=== PATIENT | female | born 1980 | race Native Hawaiian/Other Pacific Islander ===

== ENCOUNTER → 2022-02-23 14:25 | Outpatient (CLI) | payer OTHER, SELFPAY ==
[2022-02-23 16:36] LABS: Add Manual Diff / Slide Review NO; Basophils Absolute Auto 100 /uL (0-100); Basophils Percent Auto 0.5 % (0-2); Eosinophils Absolute Auto 200 /uL (0-450); Eosinophils Percent Auto 1.6 % (2-4); Hematocrit 40.3 % (36-46); Hemoglobin 13.3 g/dL (12.0-16.0); Lymphocytes Absolute Auto 2300 /uL (1100-4500); Lymphocytes Percent Auto 19.2 % (25-40); Mean Corpuscular HGB Conc 32.9 % (30-36); Mean Corpuscular Volume 78.9 fL (80-100); Monocytes Absolute Auto 500 /uL (0-900); Monocytes Percent Auto 4.4 % (3-14); Neutrophils Absolute Auto 8800 /uL (1500-7000); Neutrophils Percent Auto 74.3 % (50-75); Platelet Count 249 X10^3/uL (150-400); Red Cell Distribution Width 13.8 % (11.6-14.8); White Blood Cell Count 11.8 X10^3/uL (4.5-11.0)
[2022-02-23 16:51] LABS: Alanine Aminotransferase 25 IU/L (<35); Albumin 4.8 g/dL (3.5-5.0); Albumin Globulin Ratio 1.2 (1.0-2.8); Alkaline Phosphatase 79 U/L (38-126); Aspartate Aminotransferase 27 IU/L (14-36); BUN Creatinine Ratio 21.3 (6-22); Bilirubin Total 0.5 mg/dL (0.2-1.3); Blood Urea Nitrogen 10 mg/dL (7-17); Calcium 9.6 mg/dL (8.4-10.2); Carbon Dioxide 22 mmol/L (22-32); Chloride 103 mmol/L (98-107); Cholesterol 251 mg/dL (140-199); Estimated Glomerular Filt Rate > 60 mL/min (>60); Glucose 104 mg/dL (70-100); HDL Cholesterol 66 mg/dL (40-60); HEMOLYSIS < 15 (0-50); LDL Cholesterol Calculated 152 mg/dL (<100); Potassium 3.8 mmol/L (3.4-5.1); Sodium 139 mmol/L (137-145); Total Protein 8.8 g/dL (6.3-8.2); Triglycerides 165 mg/dL (35-150)
[2022-02-23 17:29] LABS: HCG Quantitative /Beta subunit 66352 mIU/mL
== END ==
PROVIDERS: PCP Nurse Practitioner; Referring Provider Family Medicine; Visit Provider Family Medicine
DX: N92.6 Irregular menstruation, unspecified (principal); R53.83 Other fatigue
CPT/HCPCS: 36415; 80053; 80061; 84702; 85025

== ENCOUNTER → 2022-03-12 15:46 | Outpatient (CLI) | payer OTHER, SELFPAY ==
--- NOTE | 2022-03-12 15:52 | DI.US.S_ITS ---
PROCEDURE: US OB <= 14 WEEKS FETUS INDICATIONS: EVAL SIZE AND DATES OUTSIDE/PRIOR DATING DATA: Last menstrual period (LMP): Not of the. LMP-based estimated date of delivery (RASTA): Not available. First dating scan (date and location): 03/12/2022 at . Estimated date of delivery (RASTA) from first dating scan: 10/01/2022. TECHNIQUE: Real-time scanning was performed of the fetus and maternal pelvic organs, with image documentation. Endovaginal scanning was also performed to better visualize the fetus and maternal ovaries. COMPARISON: None. FINDINGS: Embryo: There is a single living IUP. The estimated gestational age is 11 weeks 0 day. Heart rate: 168-178 BPM. Maternal organs: Right ovary is normal. Left ovary is not visualized. IMPRESSION: 1. A single living intrauterine gestation with an estimated gestational age of 11 weeks 0 day corresponding to ultrasound RASTA 10/01/2022. 2. Normal right ovary. Nonvisualization of left ovary. We strive to produce accurate, complete, and clear reports of imaging services. To assist us in improving patient care, this report was composed using standard report templates and voice recognition software. Therefore, it may contain abnormal punctuation, insertions and/or omissions. Occasional wrong-word or sound-alike substitutions may occur. Though we review the report and make efforts to correct it, we do recommend that the report be read carefully in proper context to recognize any text inaccuracies. Dictated by: Adrianna Pino M.D. on 03/12/2022 at 16:51 Approved by: Adrianna Pino M.D. on 03/12/2022 at 16:54
== END ==
PROVIDERS: PCP Family Medicine; Referring Provider Family Medicine; Visit Provider Family Medicine
DX: Z34.91 Encounter for supervision of normal pregnancy, unspecified, first trimester (principal); Z3A.11 11 weeks gestation of pregnancy
CPT/HCPCS: 76801; 76817

== ENCOUNTER → 2022-05-25 12:15 | Outpatient (CLI) | payer OTHER, SELFPAY ==
--- NOTE | 2022-05-25 12:17 | DI.US.S_ITS ---
PROCEDURE: US OB >= 14 WEEKS FETUS INDICATIONS: ANATOMY OUTSIDE/PRIOR DATING DATA: Last menstrual period (LMP): Unknown LMP-based estimated date of delivery (RASTA): Unknown First dating scan (date and location): 03/12/2022 Estimated date of delivery (RASTA) from first dating scan: 10/01/2022 TECHNIQUE: Real-time scanning was performed of the fetus, with image documentation and biometric measurements. COMPARISON: Merged With [facility], , OB <= 14 WEEKS FETUS, 03/12/2022, 16:14. FINDINGS: General: A single living intrauterine gestation is present. Presentation: Vertex Placenta: Placental position is posterior without previa. Amniotic fluid index: 12.7 cm, normal range is 5-24 cm. Single deepest vertical pocket is 4.6 cm. heart rate: 155 beats per minute. Maternal cervical canal: 3.8 cm long. Normal lower limit is 2.5 cm. biometrics: Biparietal diameter: 5.0 cm 21 weeks 0 days Head circumference: 19.3 cm 21 weeks 4 days Abdominal circumference: 16.0 cm 21 weeks 1 day Femur length: 3.4 cm 20 weeks 5 days Gestational age from initial ultrasound: 21 weeks 4 days Composite gestational age from present scan: 21 weeks 1 day Estimated weight and percentile: 394 g 19th percentile Anatomic survey: Neuro: Ventricles are non-dilated at less than 10 mm. Cisterna magna is normal at 3-11 mm. Cerebellum is normal in size and morphology. Nuchal skin fold: Normal at less than 6 mm between 14-21 weeks gestational age. Face: Nose and lips, facial profile are not well seen. Spine: No evidence for spina bifida. Heart: 4-chambered heart is present, with normal ventricular outflow tracts. Diaphragm: Diaphragm is intact. Stomach: Left-sided stomach is present. Kidneys: No hydronephrosis. Normal is less than 5 mm in 2nd trimester, less than 7 mm in 3rd trimester. Cord: 3-vessel cord has orthotopic insertion. Bladder: Normal in size. Extremities: All 4 extremities identified. IMPRESSION: Single live intrauterine with ultrasound gestational age today of 21 weeks 1 day. Facial profile as well as nose/lips are not well seen. Recommend follow-up ultrasound for further evaluation. We strive to produce accurate, complete, and clear reports of imaging services. To assist us in improving patient care, this report was composed using standard report templates and voice recognition software. Therefore, it may contain abnormal punctuation, insertions and/or omissions. Occasional wrong-word or sound-alike substitutions may occur. Though we review the report and make efforts to correct it, we do recommend that the report be read carefully in proper context to recognize any text inaccuracies. Dictated by: Zulema Brewster M.D. on 05/25/2022 at 16:48 Approved by: Zulema Brewster M.D. on 05/25/2022 at 16:51
== END ==
PROVIDERS: PCP Family Medicine; Referring Provider Family Medicine; Visit Provider Family Medicine
DX: Z34.92 Encounter for supervision of normal pregnancy, unspecified, second trimester (principal); Z3A.21 21 weeks gestation of pregnancy
CPT/HCPCS: 76811

== ENCOUNTER → 2022-06-23 08:05 | Outpatient (CLI) | payer OTHER, SELFPAY ==
--- NOTE | 2022-06-23 08:05 | DI.US.S_ITS ---
PROCEDURE: US OB FOLLOW UP INDICATIONS: PROFILE OUTSIDE/PRIOR DATING DATA: Last menstrual period (LMP): Unknown LMP-based estimated date of delivery (RASTA): Unknown. First dating scan (date and location): 03/12/2022. Estimated date of delivery (RASTA) from first dating scan: 10/01/2022. TECHNIQUE: Real-time scanning was performed of the fetus, with image documentation and biometric measurements. COMPARISON: [facility], OB >= 14 WEEKS FETUS, 05/25/2022, 12:42. [facility], OB <= 14 WEEKS FETUS, 03/12/2022, 16:14. FINDINGS: General: A single living intrauterine gestation is present. Presentation: Transverse. Placenta: Placental position is posterior , without previa. Amniotic fluid index: 19.2 cm, normal range is 5-24 cm. Single deepest vertical pocket is 5.1 cm. heart rate: 150 beats per minute. Maternal cervical canal: 4.6 cm long. Normal lower limit is 2.5 cm. biometrics: Composite gestational age from present scan: 25 weeks 5 days Other: Profile remains not well seen. IMPRESSION: Single live intrauterine with ultrasound gestational age today of 25 weeks 5 days. Profile remains not well seen and continued follow-up is recommended. We strive to produce accurate, complete, and clear reports of imaging services. To assist us in improving patient care, this report was composed using standard report templates and voice recognition software. Therefore, it may contain abnormal punctuation, insertions and/or omissions. Occasional wrong-word or sound-alike substitutions may occur. Though we review the report and make efforts to correct it, we do recommend that the report be read carefully in proper context to recognize any text inaccuracies. Dictated by: Zulema Brewster M.D. on 06/23/2022 at 16:51 Approved by: Zulema Brewster M.D. on 06/23/2022 at 16:53
[2022-06-23 12:34] LABS: Add Manual Diff / Slide Review NO; Basophils Absolute Auto 0 /uL (0-100); Basophils Percent Auto 0.4 % (0-2); Eosinophils Absolute Auto 100 /uL (0-450); Eosinophils Percent Auto 1.3 % (2-4); Hematocrit 33.5 % (36-46); Hemoglobin 11.2 g/dL (12.0-16.0); Lymphocytes Absolute Auto 1400 /uL (1100-4500); Lymphocytes Percent Auto 13.4 % (25-40); Mean Corpuscular HGB Conc 33.5 % (30-36); Mean Corpuscular Hemoglobin 26.5 PG (26-34); Mean Corpuscular Volume 79.2 fL (80-100); Monocytes Absolute Auto 300 /uL (0-900); Monocytes Percent Auto 3.1 % (3-14); Neutrophils Absolute Auto 8400 /uL (1500-7000); Neutrophils Percent Auto 81.8 % (50-75); Platelet Count 226 X10^3/uL (150-400); Red Blood Cell Count 4.23 X10^6/uL (4.0-5.2); Red Cell Distribution Width 13.3 % (11.6-14.8); White Blood Cell Count 10.3 X10^3/uL (4.5-11.0)
[2022-06-23 19:01] LABS: Hepatitis B Surface Antigen NEGATIVE s/c (NEGATIVE)
[2022-06-23 19:14] LABS: HIV 1 & 2 Ab/Ag 4th Gen Combo NEGATIVE (NEGATIVE); Hep C Virus Ab w/Reflex Quant NEGATIVE s/c (NEGATIVE)
[2022-06-24 06:32] LABS: RPR Screen Non Reactive (Non Reactive)
[2022-06-24 08:13] LABS: Varicella IgG Antibody 475 index (Immune >165)
== END ==
PROVIDERS: PCP Family Medicine; Referring Provider Family Medicine; Visit Provider Family Medicine
DX: Z34.81 Encounter for supervision of other normal pregnancy, first trimester (principal); Z36.2 Encounter for other antenatal screening follow-up; Z3A.25 25 weeks gestation of pregnancy
CPT/HCPCS: 36415; 76816; 80055; 86787; 86803; 86850; 86900; 86901; 87389

== ENCOUNTER → 2022-06-25 09:05 | Outpatient (CLI) | payer OTHER, SELFPAY ==
[2022-06-25 12:05] LABS: Hematocrit 33.1 % (36-46); Hemoglobin 10.7 g/dL (12.0-16.0); Mean Corpuscular HGB Conc 32.4 % (30-36); Mean Corpuscular Hemoglobin 26.2 PG (26-34); Mean Corpuscular Volume 80.7 fL (80-100); Platelet Count 221 X10^3/uL (150-400); Red Cell Distribution Width 13.4 % (11.6-14.8); White Blood Cell Count 9.5 X10^3/uL (4.5-11.0)
[2022-06-25 12:06] LABS: Add Manual Diff / Slide Review YES
[2022-06-25 12:33] LABS: GTT (PREG) 1 Hour PP 50gm Dose 212 mg/dL (76-139)
[2022-06-25 12:50] LABS: Neutrophils Absolute Manual 7980 /uL (3000-5900); Total Cells Counted 100
[2022-06-25 12:51] LABS: RBC Morphology Norm
== END ==
PROVIDERS: PCP Family Medicine; Referring Provider Family Medicine; Visit Provider Family Medicine
DX: Z34.92 Encounter for supervision of normal pregnancy, unspecified, second trimester (principal); Z3A.25 25 weeks gestation of pregnancy
CPT/HCPCS: 36415; 82950; 85007; 85025; 86850

== ENCOUNTER → 2022-07-24 11:23 | Outpatient (CLI) | payer OTHER, SELFPAY ==
--- NOTE | 2022-07-24 17:08 | DIAB.GDFU ---
Addendum entered by Sushma Mosqueda 07/30/22 16:38: Tried calling for one week check-in. Left a VM. Original Note: Follow-up Gestational Diabetes Assessment Name: Hailey Harrison Date: 07/24/22 Time: 1130a-1210p Dx: Gestational Diabetes Provider: Jennifer RASTA: 10/01/22 Weeks: 30 Hailey presents for follow-up today. Also had f/u with OB today. Reports OB plans to add Metformin given current BG. Hailey does have some sources of high carb, ie frappaccino, but she has been avoiding carbs at lunch and dinner. Asking for variety for meals and snacks. 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 Current diet recall indicates about 105g per day. Based on restricted diet to help significant elevated BG, seems she may be benefit from insulin initiation. Anthropometrics: Ht: 5' Wt: 142# (today with OB visit-- down 2# since last visit likely r/t reduced intake) Prepregnancy wt: 137# Physical Activity: No change reported. Walking neighborhood on days off 3x per week for 30 mins. walks at work more, 5000 steps or more. Self-Monitoring Blood Glucose: Most BG are elevated. All FBG are significant elevated. 2/6 elevated pc breakfsat, 2/5 elevated pc lunch, and all pc dinner readings elevated. Date Pre Post Pre Post Pre Post HS 07/17 123 112 109 144 07/18 126 109 106 157 07/19 123 113 102 135 07/20 108 136 159 07/21 129 176 180 210 07/22 134 100 169 241 07/23 120 107 Diabetes Medications: None (plan to start Metformin) Pertinent Labs: glucose screen 212 mg/dL H Nutrition Rx: Carbohydrates: Daily: 180g Meal: 45-60g lunch and dinner; 30g breakfast Snack: 15-30g Nutrition Diagnosis: Altered nutrition related lab value r/t GDM dx aeb recent OGTT Excessive CHO intake r/t nutrition knowledge deficit aeb diet recall- improved self monitoring deficit r/t knowledge deficit on when to check aeb pt report. - improved Inadequate carb intake for r/t hyperglycemia impacting her choice to choose low carb aeb pt report and BG log. Intervention: This participant was very receptive. Provided appropriate educational handouts. Discussed the following topics: Recent blood sugar results and impact of food and hormones Review of macronutrient recommendations during Spreading out carb intake, choosing a lower carb coffee and trying to incorporate complex carbs Snack and meal ideas sugar substitutes during recs How and when to take Metformin (with food, 12 hours a part) BG and hormones and potential for increasing over . Potential for increased medication management for GDM. Goals: Choose lower sugar coffee choice- not met Check BG 4x per day as discussed- met Pair carbs and pro at meals / snacks- met Keep rice to 1c per serving - not eating rice Try iced coffee with cream- new Try a new snack from list- new direct support staff member Metformin- new Try 1/2c rice at meals- new Follow-up: FER ROMAN follow-up in one week via phone and follow-up 1:1 two weeks Sushma Mosqueda RDN, JESSIE Certified Diabetes Care and Telephone Operator Receptionist T: [phone] F: [phone] [email or web address] Thank you for this referral
== END ==
PROVIDERS: Referring Provider Family Medicine; Visit Provider Family Medicine
DX: O24.419 Gestational diabetes mellitus in pregnancy, unspecified control (principal); Z3A.30 30 weeks gestation of pregnancy
CPT/HCPCS: 97803

== ENCOUNTER → 2022-08-06 08:22 | Outpatient (CLI) | payer OTHER, SELFPAY ==
--- NOTE | 2022-08-06 14:01 | DIAB.GDFU ---
Follow-up Gestational Diabetes Assessment Name: Hailey Harrison Date: 08/06/22 Time: 624-398a Dx: Gestational Diabetes Provider: Jennifer RASTA: 10/01/22 Weeks: 32 Hailey presents today for follow-up visit. Per diet recall, she continues below [place] for CHO during , often averaging 80-105g per day. Often skipping carbs all together at dinner and keeping carb intake 0-30g per meal otherwise. Despite this she continues to experience hyperglycemia. She has increased Metformin to 1000mg BID since evening of last OB visit on 08/03. Seems likely that she would benefit from insulin. She seems open to this, though has questions about what exactly insulin is, how it may impact baby, and how to inject. Diet Recall: 9a; 1c soup with toast (30g CHO) 1130a: 1/2c rice with veggie and meat or half eng muffin and marinara and cheese (15-20g CHO) 2p: nuts, cheese, sometimes crans (0-10g CHO) 6p: meat and salad sn: nothing or small naan with PB or banana and PB (30g CHO) Anthropometrics: Ht: 5' Wt: 146# on 08/03 Prepregnancy wt: 137# Physical Activity: No change reported. Walking neighborhood on days off 3x per week for 30 mins. walks at work more, 5000 steps or more. Self-Monitoring Blood Glucose: All FBG above 100mg/dL. 2/6 elevated pc breakfast, 4/6 elevated pc lunch and 1 of 2 elevated pc dinner. Date Pre Post Pre Post Pre Post HS 07/31 131 110 126 08/01 133 152 121 140 08/02 110 90 120 109 08/03 100 120 107 08/04 126 131 121 08/05 115 88 139 08/06 105 Diabetes Medications: 1000mg Metformin BID Pertinent Labs: glucose screen 212 mg/dL H Intervention: This participant was very receptive. Provided appropriate educational handouts. Discussed the following topics: Recent blood sugar results and impact hormones Nutrition recs for and current intake Insulin demo pen and how to inject Insulin safety during Review of macronutrient recommendations during Goals: Try iced coffee with cream- met Try a new snack from list- met superintendent container terminal Metformin- met Try 1/2c rice at meals- met If starting insulin, add 45g carbs at lunch and dinner- new Follow-up: FER ROMAN follow-up in one week via phone and in person in two weeks. Even with some improved BG with increased Metformin, Hailey is having to eat very low carb to keep BG in goal pc. Based on current BG seems Hailey would benefit from long acting insulin HS. Will message provider for further evaluation. Sushma Mosqueda RDN, [facility] Certified Diabetes Care and Senior Game Developer T: [phone] F: [phone] [email or web address] Thank you for this referral
== END ==
PROVIDERS: Referring Provider Family Medicine; Visit Provider Family Medicine
DX: O24.415 Gestational diabetes mellitus in pregnancy, controlled by oral hypoglycemic drugs (principal); Z3A.32 32 weeks gestation of pregnancy; Z71.3 Dietary counseling and surveillance
CPT/HCPCS: G0108

== ENCOUNTER 2022-08-06 13:51 | Outpatient (CLI) | payer OTHER, SELFPAY ==
--- NOTE | 2022-08-07 13:01 | PM.OBTRLD ---
Visit Information Visit Information Date of evaluation: 08/06/22 Primary OB Provider: Jennifer Rodriguez On-call OB Provider: Richard Mariano Reason for Evaluation: Yes non-stress test Comments/Additional reasons for admission: IUP, 32+0 weeks EGA, advanced maternal age, gestational diabetes Vital Signs Vital Signs: 116/64 [facility] Medical History (Updated 08/07/22 @ 13:05 by Richard Mariano MD) Abnormal Pap smear of cervix (~2008) Gastritis Surgical History (Updated 07/09/22 @ 15:05 by Ethan Mancilla) [place] teeth extracted Family History (System 07/09/22 @ 15:05 by Ethan Mancilla) Father Prostate cancer Atrial fibrillation Family/Other Breast cancer Family/Other Prostate cancer Grandmother Bone cancer Family/Other Breast cancer Family/Other Cancer Social History (System 07/09/22 @ 15:05 by Ethan Mancilla) marital status: number of children: 2 household members: spouse, family and children lives independently: Yes [facility]) pets and animals: Yes (3 dogs) education level: high school 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[employer]) current occupational exposures/hazards: No special kathie needs: No seatbelt use: always helmet use: Yes water heater temp set < 120 deg: Yes working smoke detector in home: Yes fire extinguisher in home: Yes carbon monox detector in home: Yes firearms in home: No do you feel safe at home: Yes Smoking Status: Former smoker (Quit 2009) Tobacco: How many years used: 19 quit status: has quit before alcohol intake: former substance use type: does not use during the past year weight has: remained stable well-balanced diet: daily or most days daily servings fruits/ve-4 caffeine: Yes Type(s) of exercise: walking Evaluation Evaluation Baseline heart rate: 130 Variability: Moderate (11-25) monitor accelerations: Present Monitor Decelerations: Absent Category of Tracing: Reactive Diagnosis, Plan/Disposition Final Diagnosis (1) Gestational diabetes: Status: Acute (2) Advanced maternal age (AMA), 40 years or greater: Status: Acute (3) : Status: Acute Problem details: Ansari, 32+ 0 weeks gestational age Plan/Disposition Plan: Continue current plans for care per Dr. Rodriguez OB Disposition: home
== END 2022-08-06 15:03 | disposition home or self-care (01) ==
LOC: OB 08-07 16:41
PROVIDERS: Referring Provider Family Medicine; Visit Provider Family Medicine
DX: O24.415 Gestational diabetes mellitus in pregnancy, controlled by oral hypoglycemic drugs (principal); O09.523 Supervision of elderly multigravida, third trimester; Z3A.32 32 weeks gestation of pregnancy
CPT/HCPCS: 59025; G0378; G0379

== ENCOUNTER → 2022-08-10 06:46 | Outpatient (CLI) | payer OTHER, SELFPAY ==
--- NOTE | 2022-08-10 06:47 | DI.US.S_ITS ---
PROCEDURE: US OB FOLLOW UP INDICATIONS: GROWTH SCREEN OUTSIDE/PRIOR DATING DATA: Last menstrual period (LMP): Unknown LMP-based estimated date of delivery (RASTA): Unknown First dating scan (date and location): 03/12/2022 Estimated date of delivery (RASTA) from first dating scan: 10/01/2022 The calculations are made using the study derived RASTA of 10/01/2022 TECHNIQUE: Real-time scanning was performed of the fetus, with image documentation and biometric measurements. Endovaginal scanning: Not indicated COMPARISON: [facility], OB FOLLOW UP, 06/23/2022, 8:08. FINDINGS: General: A single living intrauterine gestation is present. Presentation: Breech Placenta: Placental position is posterior, without previa. Amniotic fluid index: 15.3 cm, normal range is 5-24 cm. Single deepest vertical pocket is 4.9 cm. heart rate: 145 beats per minute. Maternal cervical canal: 4.0 cm long. Normal lower limit is 2.5 cm. biometrics: Biparietal diameter: 7.8 cm, 31 weeks, 2 days. Head circumference: 29.6 cm, 32 weeks, 5 days. Abdominal circumference: 27.6 cm, 31 weeks, 5 days. Femur length: 6.1 cm, 31 weeks, 4 days. Clinically estimated gestational age: 32 weeks, 4 days. Composite gestational age from present scan: 31 weeks, 6 days. Estimated weight and percentile: 1827 g, 18%. Other: Facial profile is visualized and is within normal limits. IMPRESSION: 1. Single live intrauterine gestation with fetus in breech presentation. heart rate is 145 beats per minute. Normal amount of amniotic fluid. Estimated weight is at 18%. Cervix is closed and measures 4 point C0 cm in length. 2. Facial profile is visualized and is within normal limits. We strive to produce accurate, complete, and clear reports of imaging services. To assist us in improving patient care, this report was composed using standard report templates and voice recognition software. Therefore, it may contain abnormal punctuation, insertions and/or omissions. Occasional wrong-word or sound-alike substitutions may occur. Though we review the report and make efforts to correct it, we do recommend that the report be read carefully in proper context to recognize any text inaccuracies. Dictated by: Ming Williamson M.D. on 08/10/2022 at 9:25 Approved by: Ming Williamson M.D. on 08/10/2022 at 9:27
== END ==
PROVIDERS: Referring Provider Family Medicine; Visit Provider Family Medicine
DX: Z3A.31 31 weeks gestation of pregnancy; Z36.89 Encounter for other specified antenatal screening
CPT/HCPCS: 76816

== ENCOUNTER 2022-08-10 06:48 | Outpatient (CLI) | payer OTHER, SELFPAY ==
--- NOTE | 2022-08-10 09:03 | PM.OBTRLD ---
Visit Information Visit Information Date of evaluation: 08/10/22 Primary OB Provider: Jennifer Rodriguez Comments/Additional reasons for admission: 42yo at 32w4d here for NST for GDMA2. [facility] Medical History (Updated 08/10/22 @ 09:05 by Jennifer Rodriguez MD) Abnormal Pap smear of cervix (~2008) Gastritis Surgical History (Updated 07/09/22 @ 15:05 by Ethan Mancilla) [place] teeth extracted Family History (System 07/09/22 @ 15:05 by Ethan Mancilla) Father Prostate cancer Atrial fibrillation Family/Other Breast cancer Family/Other Prostate cancer Grandmother Bone cancer Family/Other Breast cancer Family/Other Cancer Social History (System 07/09/22 @ 15:05 by Ethan Mancilla) marital status: number of children: 2 household members: spouse, family and children lives independently: Yes housing: [facility]) pets and animals: Yes (3 dogs) education level: high school 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[employer]) current occupational exposures/hazards: No special kathei needs: No seatbelt use: always helmet use: Yes water heater temp set < 120 deg: Yes working smoke detector in home: Yes fire extinguisher in home: Yes carbon monox detector in home: Yes firearms in home: No do you feel safe at home: Yes Smoking Status: Former smoker (Quit 2009) Tobacco: How many years used: 19 quit status: has quit before alcohol intake: former substance use type: does not use during the past year weight has: remained stable well-balanced diet: daily or most days daily servings fruits/ve-4 caffeine: Yes Type(s) of exercise: walking Evaluation Evaluation Baseline heart rate: 150 Variability: Moderate (11-25) monitor accelerations: Present Monitor Decelerations: Absent Category of Tracing: Reactive Diagnosis, Plan/Disposition Final Diagnosis (1) Gestational diabetes: Status: Acute (2) 32 weeks gestation of : Status: Acute (3) Advanced maternal age (AMA), 40 years or greater: Status: Acute Plan/Disposition Plan: 42yo at 32w4d here for NST for GDMA2. Reactive NST. Will continue testing. Stable for d/c home. OB Disposition: home
== END 2022-08-10 09:15 | disposition home or self-care (01) ==
LOC: LABOR 08:35 → OB 08-11 08:01
PROVIDERS: Referring Provider Family Medicine; Visit Provider Family Medicine
DX: O24.415 Gestational diabetes mellitus in pregnancy, controlled by oral hypoglycemic drugs (principal); O09.523 Supervision of elderly multigravida, third trimester; Z3A.32 32 weeks gestation of pregnancy; Z36.89 Encounter for other specified antenatal screening; Z3A.31 31 weeks gestation of pregnancy
CPT/HCPCS: 59025; 76816; G0378; G0379

== ENCOUNTER 2022-08-13 10:54 | Outpatient (CLI) | payer OTHER, SELFPAY ==
--- NOTE | 2022-08-13 12:30 | PM.OBTRLD ---
Visit Information Visit Information Date of evaluation: 08/13/22 Primary OB Provider: Jennifer Rodriguez On-call OB Provider: Richard Mariano Reason for Evaluation: Yes non-stress test Comments/Additional reasons for admission: 42 YO at 33+0 weeks EGA for NST due to GDM A2 and AMA PFSH Medical History (Updated 08/13/22 @ 12:33 by Richard Mariano MD) Abnormal Pap smear of cervix (~2008) Gastritis Surgical History (Updated 07/09/22 @ 15:05 by Ethan Mancilla) [place] teeth extracted Family History (System 07/09/22 @ 15:05 by Ethan Mancilla) Father Prostate cancer Atrial fibrillation Family/Other Breast cancer Family/Other Prostate cancer Grandmother Bone cancer Family/Other Breast cancer Family/Other Cancer Social History (System 07/09/22 @ 15:05 by Ethan Mancilla) marital status: number of children: 2 household members: spouse, family and children lives independently: Yes housing: [facility] ([facility]) pets and animals: Yes (3 dogs) education level: high school 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[employer]) current occupational exposures/hazards: No special kathie needs: No seatbelt use: always helmet use: Yes water heater temp set < 120 deg: Yes working smoke detector in home: Yes fire extinguisher in home: Yes carbon monox detector in home: Yes firearms in home: No do you feel safe at home: Yes Smoking Status: Former smoker (Quit 2009) Tobacco: How many years used: 19 quit status: has quit before alcohol intake: former substance use type: does not use during the past year weight has: remained stable well-balanced diet: daily or most days daily servings fruits/ve-4 caffeine: Yes Type(s) of exercise: walking Evaluation Evaluation Baseline heart rate: 14 Variability: Moderate (11-25) monitor accelerations: Present Monitor Decelerations: Absent Category of Tracing: Reactive Diagnosis, Plan/Disposition Final Diagnosis (1) : Status: Acute Problem details: Ansari, 33+ 0 weeks gestational age (2) Gestational diabetes: Status: Acute (3) Advanced maternal age (AMA), 40 years or greater: Status: Acute Plan/Disposition Plan: Continue weekly surveillance as currently scheduled. OB Disposition: home
== END 2022-08-13 11:50 | disposition home or self-care (01) ==
LOC: OB 08-24 07:50
PROVIDERS: PCP Family Medicine; Referring Provider Family Medicine; Visit Provider Family Medicine
DX: O24.414 Gestational diabetes mellitus in pregnancy, insulin controlled (principal); O09.523 Supervision of elderly multigravida, third trimester; Z3A.33 33 weeks gestation of pregnancy
CPT/HCPCS: 59025; G0378; G0379

== ENCOUNTER 2022-08-17 10:42 | Outpatient (CLI) | payer OTHER, SELFPAY ==
--- NOTE | 2022-08-17 11:47 | P.TNLD_ITS ---
Visit Information Visit Information Date of evaluation: 08/17/22 Primary OB Provider: Jennifer Rodriguez Comments/Additional reasons for admission: at 33w4d here for NST for gestational diabetes. She is feeling her baby move regularly. No LOF, vaginal bleeding, contractions. [facility] Medical History (Updated 08/17/22 @ 16:28 by Jennifer Rodriguez MD) Abnormal Pap smear of cervix (~2008) Gastritis Surgical History (Updated 07/09/22 @ 15:05 by Ethna Mancilla) [place] teeth extracted Family History (System 07/09/22 @ 15:05 by Ethan Mancilla) Father Prostate cancer Atrial fibrillation Family/Other Breast cancer Family/Other Prostate cancer Grandmother Bone cancer Family/Other Breast cancer Family/Other Cancer Social History (System 07/09/22 @ 15:05 by Ethan Mancilla) marital status: number of children: 2 household members: spouse, family and children lives independently: Yes housing: condominium ([facility]) pets and animals: Yes (3 dogs) education level: high school 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[employer]) current occupational exposures/hazards: No special kathie needs: No seatbelt use: always helmet use: Yes water heater temp set < 120 deg: Yes working smoke detector in home: Yes fire extinguisher in home: Yes carbon monox detector in home: Yes firearms in home: No do you feel safe at home: Yes Smoking Status: Former smoker (Quit 2009) Tobacco: How many years used: 19 quit status: has quit before alcohol intake: former substance use type: does not use during the past year weight has: remained stable well-balanced diet: daily or most days daily servings fruits/ve-4 caffeine: Yes Type(s) of exercise: walking Evaluation Evaluation Baseline heart rate: 145 Variability: Moderate (11-25) monitor accelerations: Present Monitor Decelerations: Absent Category of Tracing: Reactive Diagnosis, Plan/Disposition Final Diagnosis (1) Gestational diabetes: Status: Acute (2) 33 weeks gestation of : Status: Acute Plan/Disposition Plan: 42yo here for NST for GDMA2. NST reactive. Continue testing. OB Disposition: home
== END 2022-08-17 11:48 | disposition home or self-care (01) ==
LOC: LABOR 11:45 → OB 08-24 07:56
PROVIDERS: PCP Family Medicine; Referring Provider Family Medicine; Visit Provider Family Medicine
DX: O24.414 Gestational diabetes mellitus in pregnancy, insulin controlled (principal); Z3A.33 33 weeks gestation of pregnancy
CPT/HCPCS: 59025; G0378; G0379

== ENCOUNTER 2022-08-24 10:55 | Outpatient (CLI) | payer OTHER, SELFPAY ==
--- NOTE | 2022-08-24 11:36 | PM.OBTRLD ---
Visit Information Visit Information Date of evaluation: 08/24/22 Primary OB Provider: Jennifer Rodriguez Comments/Additional reasons for admission: 42yo at 34w4d here for NST for GDMA2. Pt is feeling her baby move regularly. No LOF, contractions, vaginal bleeding. [facility]LY [facility], [facility] Medical History (Updated 08/24/22 @ 12:37 by Jennifer Rodriguez MD) Abnormal Pap smear of cervix (~2008) Gastritis Surgical History (Updated 07/09/22 @ 15:05 by Ethan Mancilla) [place] teeth extracted Family History (System 07/09/22 @ 15:05 by Ethan Mancilla) Father Prostate cancer Atrial fibrillation Family/Other Breast cancer Family/Other Prostate cancer Grandmother Bone cancer Family/Other Breast cancer Family/Other Cancer Social History (System 07/09/22 @ 15:05 by Ethan Mancilla) marital status: number of children: 2 household members: spouse, family and children lives independently: Yes housing: [place] ([facility]) pets and animals: Yes (3 dogs) education level: high school 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[employer]) current occupational exposures/hazards: No special kathie needs: No seatbelt use: always helmet use: Yes water heater temp set < 120 deg: Yes working smoke detector in home: Yes fire extinguisher in home: Yes carbon monox detector in home: Yes firearms in home: No do you feel safe at home: Yes Smoking Status: Former smoker (Quit 2009) Tobacco: How many years used: 19 quit status: has quit before alcohol intake: former substance use type: does not use during the past year weight has: remained stable well-balanced diet: daily or most days daily servings fruits/ve-4 caffeine: Yes Type(s) of exercise: walking Evaluation Evaluation Baseline heart rate: 150 Variability: Moderate (11-25) monitor accelerations: Present Monitor Decelerations: Absent Category of Tracing: Reactive Diagnosis, Plan/Disposition Final Diagnosis (1) Gestational diabetes: Status: Acute (2) 34 weeks gestation of : Status: Acute (3) Advanced maternal age (AMA), 40 years or greater: Status: Acute Plan/Disposition Plan: 42yo at 34w4d here for NST for GDMA2. NST reactive. Continue testing. OB Disposition: home
== END 2022-08-24 11:25 | disposition home or self-care (01) ==
LOC: LABOR 11:26 → OB 08-26 08:15
PROVIDERS: PCP Family Medicine; Referring Provider Family Medicine; Visit Provider Family Medicine
DX: O24.414 Gestational diabetes mellitus in pregnancy, insulin controlled (principal); O09.523 Supervision of elderly multigravida, third trimester; Z3A.34 34 weeks gestation of pregnancy
CPT/HCPCS: 59025; G0378; G0379

== ENCOUNTER 2022-08-28 07:50 | Observation (INO) | payer OTHER, SELFPAY ==
--- NOTE | 2022-08-28 08:51 | DI.US.S_ITS ---
PROCEDURE: US OB BIOPHYSICAL PROFILE INDICATIONS: FHR decelerations during non-stress test 35.1 wk OUTSIDE/PRIOR DATING DATA: Last menstrual period (LMP): Unknown. LMP-based estimated date of delivery (RASTA): Not applicable. First dating scan (date and location): 03/12/22. Estimated date of delivery (RASTA) from first dating scan: 10/01/22. The calculations are made using the first-trimester ultrasound RASTA of 10/01/22. TECHNIQUE: Real-time scanning was performed of the fetus for biophysical profile, with image documentation. Color and pulse Doppler interrogation was also performed of the umbilical artery near its insertion into the placenta. Endovaginal scanning: Not performed COMPARISON: None. FINDINGS: General: A single living intrauterine gestation is present. Presentation: Vertex. Placenta: Placental position is posterior. Amniotic fluid index: 13.2 cm, normal range is 5-24 cm. Single deepest vertical pocket is 4.7 cm. heart rate: 145 beats per minute. Maternal cervical canal: Not well seen. Clinically estimated gestational age: 35 weeks one day Biophysical profile: Tone: 2 points. Movement: 2 points. Respiration: 2 points. Largest pocket of fluid: 2 points. IMPRESSION: 1. Single living intrauterine with a normal biophysical profile. 2. Normal amniotic fluid volume. 3. Cervix not seen. We strive to produce accurate, complete, and clear reports of imaging services. To assist us in improving patient care, this report was composed using standard report templates and voice recognition software. Therefore, it may contain abnormal punctuation, insertions and/or omissions. Occasional wrong-word or sound-alike substitutions may occur. Though we review the report and make efforts to correct it, we do recommend that the report be read carefully in proper context to recognize any text inaccuracies. Dictated by: Olga Varela M.D. on 08/28/2022 at 10:48 Approved by: Olga Varela M.D. on 08/28/2022 at 10:50
--- NOTE | 2022-08-28 10:00 | PM.OBTRLD ---
Visit Information Visit Information Date of evaluation: 08/28/22 Primary OB Provider: Jennifer Rodriguez On-call OB Provider: Richard Mariano Reason for Evaluation: Yes non-stress test Comments/Additional reasons for admission: 42 yo RASTA 10/01/2022 presenting for her weekly NST due to AMA and GDMA2. [facility] Medical History (Updated 08/24/22 @ 12:37 by Jennifer Rodriguez MD) Abnormal Pap smear of cervix (~2008) Gastritis Surgical History (Updated 07/09/22 @ 15:05 by Ethan Mancilla) [place] teeth extracted Family History (System 07/09/22 @ 15:05 by Ethan Mancilla) Father Prostate cancer Atrial fibrillation Family/Other Breast cancer Family/Other Prostate cancer Grandmother Bone cancer Family/Other Breast cancer Family/Other Cancer Social History (System 07/09/22 @ 15:05 by Ethan Mancilla) marital status: number of children: 2 household members: spouse, family and children lives independently: Yes housing: [facility] ([facility]) pets and animals: Yes (3 dogs) education level: high school 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[employer]) current occupational exposures/hazards: No special kathie needs: No seatbelt use: always helmet use: Yes water heater temp set < 120 deg: Yes working smoke detector in home: Yes fire extinguisher in home: Yes carbon monox detector in home: Yes firearms in home: No do you feel safe at home: Yes Smoking Status: Former smoker (Quit 2009) Tobacco: How many years used: 19 quit status: has quit before alcohol intake: former substance use type: does not use during the past year weight has: remained stable well-balanced diet: daily or most days daily servings fruits/ve-4 caffeine: Yes Type(s) of exercise: walking Evaluation Evaluation Baseline heart rate: 150 Variability: Moderate (11-25) monitor accelerations: Present Monitor Decelerations: Episodic and Variable (Two small variables noted at 0807 and 0817) Category of Tracing: Reactive Status: Category l Comments: BPP 8/8, 13 cm MAKENZIE Diagnosis, Plan/Disposition Plan/Disposition Plan: Continue care and surveillance as planned by Dr. Rodriguez with the next MITCHELL visit scheduled for 08/31/2022. OB Disposition: home
== END 2022-08-28 10:43 | disposition home or self-care (01) ==
PROVIDERS: Admitting Provider Family Medicine; PCP Family Medicine; Referring Provider Family Medicine; Visit Provider Family Medicine
DX: O09.523 Supervision of elderly multigravida, third trimester (principal); O24.414 Gestational diabetes mellitus in pregnancy, insulin controlled; Z3A.35 35 weeks gestation of pregnancy
CPT/HCPCS: 59025; 59050; 76819; G0378; G0379

== ENCOUNTER 2022-08-31 11:31 | Outpatient (CLI) | payer OTHER, SELFPAY ==
--- NOTE | 2022-08-31 12:37 | PM.OBTRLD ---
Visit Information Visit Information Date of evaluation: 08/31/22 Primary OB Provider: Jennifer Rodriguez Reason for Evaluation: Yes non-stress test non-stress test reason: diabetes Comments/Additional reasons for admission: 42yo at 35w4d here for NST for GDMA2 and AMA. Pt is feeling her baby move regularly. No LOF, vaginal bleeding, contractions. [facility], [facility] Medical History (Updated 08/31/22 @ 10:34 by Jennifer Rodriguez MD) Abnormal Pap smear of cervix (~2008) Gastritis Surgical History (Updated 07/09/22 @ 15:05 by Ethan Mancilla) [place] teeth extracted Family History (System 07/09/22 @ 15:05 by Ethan Mancilla) Father Prostate cancer Atrial fibrillation Family/Other Breast cancer Family/Other Prostate cancer Grandmother Bone cancer Family/Other Breast cancer Family/Other Cancer Social History (System 07/09/22 @ 15:05 by Ethan Mancilla) marital status: number of children: 2 household members: spouse, family and children lives independently: Yes housing: [facility] ([facility]) pets and animals: Yes (3 dogs) education level: high school 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[employer]) current occupational exposures/hazards: No special kathie needs: No seatbelt use: always helmet use: Yes water heater temp set < 120 deg: Yes working smoke detector in home: Yes fire extinguisher in home: Yes carbon monox detector in home: Yes firearms in home: No do you feel safe at home: Yes Smoking Status: Former smoker (Quit 2009) Tobacco: How many years used: 19 quit status: has quit before alcohol intake: former substance use type: does not use during the past year weight has: remained stable well-balanced diet: daily or most days daily servings fruits/ve-4 caffeine: Yes Type(s) of exercise: walking Evaluation Evaluation Baseline heart rate: 145 Variability: Moderate (11-25) monitor accelerations: Present Monitor Decelerations: Absent Category of Tracing: Reactive Diagnosis, Plan/Disposition Final Diagnosis (1) 35 weeks gestation of : Status: Acute (2) Gestational diabetes: Status: Acute (3) Advanced maternal age (AMA), 40 years or greater: Status: Acute Plan/Disposition Plan: 42yo at 35w4d here for NST for GDMA2 and AMA. NST reactive. Continue testing. OB Disposition: home
== END 2022-08-31 12:40 | disposition home or self-care (01) ==
LOC: LABOR 11:39 → OB 09-01 15:01
PROVIDERS: PCP Family Medicine; Referring Provider Family Medicine; Visit Provider Family Medicine
DX: O24.414 Gestational diabetes mellitus in pregnancy, insulin controlled (principal); O09.523 Supervision of elderly multigravida, third trimester; Z3A.35 35 weeks gestation of pregnancy
CPT/HCPCS: 59025; G0378; G0379

== ENCOUNTER 2022-09-03 10:53 | Observation (INO) | payer OTHER, SELFPAY ==
--- NOTE | 2022-09-04 08:49 | PM.OBTRLD ---
Visit Information Visit Information Date of evaluation: 09/03/22 Primary OB Provider: Jennifer Rodriguez On-call OB Provider: Richard Mariano Reason for Evaluation: Yes non-stress test Comments/Additional reasons for admission: 42 yo at 36+0 weeks EGA presenting for NST due to AMA and GDM A2. [facility] Medical History (Updated 09/04/22 @ 08:53 by Richard Mariano MD) Abnormal Pap smear of cervix (~2008) Gastritis Surgical History (Updated 07/09/22 @ 15:05 by Ethan Mancilla) [place] teeth extracted Family History (System 07/09/22 @ 15:05 by Ethan Mancilla) Father Prostate cancer Atrial fibrillation Family/Other Breast cancer Family/Other Prostate cancer Grandmother Bone cancer Family/Other Breast cancer Family/Other Cancer Social History (System 07/09/22 @ 15:05 by Ethan Mancilla) marital status: number of children: 2 household members: spouse, family and children lives independently: Yes housing: [facility] ([facility]) pets and animals: Yes (3 dogs) education level: high school 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[employer]) current occupational exposures/hazards: No special kathie needs: No seatbelt use: always helmet use: Yes water heater temp set < 120 deg: Yes working smoke detector in home: Yes fire extinguisher in home: Yes carbon monox detector in home: Yes firearms in home: No do you feel safe at home: Yes Smoking Status: Former smoker (Quit 2009) Tobacco: How many years used: 19 quit status: has quit before alcohol intake: former substance use type: does not use during the past year weight has: remained stable well-balanced diet: daily or most days daily servings fruits/ve-4 caffeine: Yes Type(s) of exercise: walking Evaluation Evaluation Baseline heart rate: 145 Variability: Moderate (11-25) monitor accelerations: Present Monitor Decelerations: Absent Category of Tracing: Reactive Diagnosis, Plan/Disposition Final Diagnosis (1) Gestational diabetes: Status: Acute (2) : Status: Acute Problem details: [place], 36+ 0 weeks gestational age (3) Advanced maternal age (AMA), 40 years or greater: Status: Acute Plan/Disposition Plan: Continue testing as planned by Dr. Rodriguez. MITCHELL appointment scheduled for next week. Labor precautions OB Disposition: home
== END 2022-09-03 11:30 | disposition home or self-care (01) ==
PROVIDERS: Admitting Provider Family Medicine; PCP Family Medicine; Referring Provider Family Medicine; Visit Provider Family Medicine
DX: O24.414 Gestational diabetes mellitus in pregnancy, insulin controlled (principal); O09.523 Supervision of elderly multigravida, third trimester; Z3A.36 36 weeks gestation of pregnancy
CPT/HCPCS: 59025; G0378; G0379

== ENCOUNTER → 2022-09-07 09:33 | Outpatient (CLI) | payer OTHER, SELFPAY ==
[2022-09-08 16:46] LABS: Strep Grp B PCR NEG for Grp B Strep
== END ==
PROVIDERS: PCP Family Medicine; Visit Provider Family Medicine
DX: Z36.85 Encounter for antenatal screening for Streptococcus B (principal); Z3A.36 36 weeks gestation of pregnancy
CPT/HCPCS: 87653

== ENCOUNTER 2022-09-07 12:01 | Outpatient (CLI) | payer OTHER, SELFPAY ==
--- NOTE | 2022-09-07 12:29 | DI.US.S_ITS ---
PROCEDURE: US OB LIMITED INDICATIONS: growth, MAKENZIE OUTSIDE/PRIOR DATING DATA: Last menstrual period (LMP): Unknown. LMP-based estimated date of delivery (RASTA): Unknown. First dating scan (date and location): 03/12/2022 Estimated date of delivery (RASTA) from first dating scan: 10/01/2022 The calculations are made using the ultrasound RASTA of 10/01/2022. TECHNIQUE: Real-time scanning was performed of the fetus, with image documentation and biometric measurements. Biophysical profile was also obtained. COMPARISON: [facility], OB BIOPHYSICAL PROFILE, 08/28/2022, 9:38. [facility], OB FOLLOW UP, 08/10/2022, 7:07. [facility], OB FOLLOW UP, 06/23/2022, 8:08. [facility], US OB >= 14 WEEKS FETUS, 05/25/2022, 12:42. [facility], US OB <= 14 WEEKS FETUS, 03/12/2022, 16:14. FINDINGS: General: A single living intrauterine gestation is present. Presentation: Vertex. Placenta: Placental position is posterior , without previa. Amniotic fluid index: 12.3 cm, normal range is 5-24 cm. Single deepest vertical pocket is 4.1 cm. heart rate: 169 beats per minute. Maternal cervical canal: Not well seen cm biometrics: Biparietal diameter: 8.4 cm 33 weeks 6 days Head circumference: 31.6 cm 35 weeks 3 days Abdominal circumference: 32.1 cm 36 weeks 0 days Femur length: 6.8 cm 35 weeks 0 days Composite gestational age from initial scan: 36 weeks 4 days Composite gestational age from present scan: 35 weeks 1 day Estimated weight and percentile: 2685 g 25th percentile Umbilical artery Doppler: 2.3, 3.2, 2.0 IMPRESSION: Single live intrauterine with ultrasound gestational age today of 35 weeks 1 day. weight is at the 25th percentile. We strive to produce accurate, complete, and clear reports of imaging services. To assist us in improving patient care, this report was composed using standard report templates and voice recognition software. Therefore, it may contain abnormal punctuation, insertions and/or omissions. Occasional wrong-word or sound-alike substitutions may occur. Though we review the report and make efforts to correct it, we do recommend that the report be read carefully in proper context to recognize any text inaccuracies. Dictated by: Zulema Brewster M.D. on 09/07/2022 at 15:24 Approved by: Zulema Brewster M.D. on 09/07/2022 at 15:27
--- NOTE | 2022-09-07 12:58 | P.TNLD_ITS ---
Visit Information Visit Information Date of evaluation: 09/07/22 Primary OB Provider: Jennifer Rodriguez Comments/Additional reasons for admission: 42yo at 36w4d here for NST for GDMA2 and AMA. Pt is feeling her baby move regularly. No LOF, vaginal bleeding, contractions. [facility] Medical History (Updated 09/04/22 @ 08:53 by Richard Mariano MD) Abnormal Pap smear of cervix (~2008) Gastritis Surgical History (Updated 07/09/22 @ 15:05 by Ethan Mancilla) [place] teeth extracted Family History (System 07/09/22 @ 15:05 by Ethan Mancilal) Father Prostate cancer Atrial fibrillation Family/Other Breast cancer Family/Other Prostate cancer Grandmother Bone cancer Family/Other Breast cancer Family/Other Cancer Social History (System 07/09/22 @ 15:05 by Ethan Mancilla) marital status: number of children: 2 household members: spouse, family and children lives independently: Yes housing: [employer] ([facility]) pets and animals: Yes (3 dogs) education level: high school 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[employer]) current occupational exposures/hazards: No special kathie needs: No seatbelt use: always helmet use: Yes water heater temp set < 120 deg: Yes working smoke detector in home: Yes fire extinguisher in home: Yes carbon monox detector in home: Yes firearms in home: No do you feel safe at home: Yes Smoking Status: Former smoker (Quit 2009) Tobacco: How many years used: 19 quit status: has quit before alcohol intake: former substance use type: does not use during the past year weight has: remained stable well-balanced diet: daily or most days daily servings fruits/ve-4 caffeine: Yes Type(s) of exercise: walking Evaluation Evaluation Baseline heart rate: 150 Variability: Moderate (11-25) monitor accelerations: Present Monitor Decelerations: Absent Category of Tracing: Reactive Diagnosis, Plan/Disposition Final Diagnosis (1) Gestational diabetes: Status: Acute (2) Advanced maternal age (AMA), 40 years or greater: Status: Acute Plan/Disposition Plan: at 36w4d here for NST for GDMA2 and AMA. NST reactive. Growth u/s obtained today normal MAKENZIE and appropriate growth. Continue regular monitoring. OB Disposition: home
== END 2022-09-07 13:00 | disposition home or self-care (01) ==
LOC: OB 09-08 10:37
PROVIDERS: PCP Family Medicine; Referring Provider Family Medicine; Visit Provider Family Medicine
DX: O24.414 Gestational diabetes mellitus in pregnancy, insulin controlled (principal); O09.523 Supervision of elderly multigravida, third trimester; Z3A.36 36 weeks gestation of pregnancy; Z36.85 Encounter for antenatal screening for Streptococcus B
CPT/HCPCS: 59025; 76815; 76820; 87653; G0378; G0379

== ENCOUNTER 2022-09-10 10:55 | Outpatient (CLI) | payer OTHER, SELFPAY ==
--- NOTE | 2022-09-10 11:26 | P.TNLD_ITS ---
Visit Information Visit Information Date of evaluation: 09/10/22 Primary OB Provider: Jennifer Rodriguez On-call OB Provider: Amanda Henley Reason for Evaluation: Yes non-stress test non-stress test reason: diabetes Vital Signs Vital Signs: Temperature 98.4? 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[employer]) current occupational exposures/hazards: No special kathie needs: No seatbelt use: always helmet use: Yes water heater temp set < 120 deg: Yes working smoke detector in home: Yes fire extinguisher in home: Yes carbon monox detector in home: Yes firearms in home: No do you feel safe at home: Yes Smoking Status: Former smoker (Quit 2009) Tobacco: How many years used: 19 quit status: has quit before alcohol intake: former substance use type: does not use during the past year weight has: remained stable well-balanced diet: daily or most days daily servings fruits/ve-4 caffeine: Yes Type(s) of exercise: walking Evaluation Evaluation Baseline heart rate: 150 Variability: Moderate (11-25) monitor accelerations: Present Monitor Decelerations: Absent Category of Tracing: Reactive Diagnosis, Plan/Disposition Final Diagnosis (1) Gestational diabetes: Status: Acute (2) Advanced maternal age (AMA), 40 years or greater: Status: Acute (3) 37 weeks gestation of : Status: Acute Plan/Disposition Plan: 42 year old at 37w here for NST for GDMA2 and AMA.? NST reactive.? Continue testing per Dr. Rodriguez. OB Disposition: home
== END 2022-09-10 11:45 | disposition home or self-care (01) ==
LOC: LABOR 11:58 → OB 09-17 16:16
PROVIDERS: PCP Family Medicine; Referring Provider Family Medicine; Visit Provider Family Medicine
DX: O24.414 Gestational diabetes mellitus in pregnancy, insulin controlled (principal); O09.523 Supervision of elderly multigravida, third trimester; Z3A.37 37 weeks gestation of pregnancy
CPT/HCPCS: 59025; G0378; G0379

== ENCOUNTER 2022-09-14 12:06 | Outpatient (CLI) | payer OTHER, SELFPAY ==
--- NOTE | 2022-09-14 12:39 | PM.OBTRLD ---
Visit Information Visit Information Date of evaluation: 09/14/22 Primary OB Provider: Jennifer Rodriguez Comments/Additional reasons for admission: Pt is a 42yo at 37w4d here for NST for GDMA2 and AMA. Pt is feeling baby move regularly. She denies any vaginal bleeding, LOF, contractions. 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 occupational exposures/hazards: No special kathie needs: No seatbelt use: always helmet use: Yes water heater temp set < 120 deg: Yes working smoke detector in home: Yes fire extinguisher in home: Yes carbon monox detector in home: Yes firearms in home: No do you feel safe at home: Yes Smoking Status: Former smoker (Quit 2009) Tobacco: How many years used: 19 quit status: has quit before alcohol intake: former substance use type: does not use during the past year weight has: remained stable well-balanced diet: daily or most days daily servings fruits/ve-4 caffeine: Yes Type(s) of exercise: walking Evaluation Evaluation Baseline heart rate: 140 Variability: Moderate (11-25) monitor accelerations: Present Monitor Decelerations: Absent Category of Tracing: Reactive Diagnosis, Plan/Disposition Final Diagnosis (1) 37 weeks gestation of : Status: Acute (2) Gestational diabetes: Status: Acute (3) Advanced maternal age (AMA), 40 years or greater: Status: Acute Plan/Disposition Plan: Pt is a 42yo at 37w4d here for NST for GDMA2 and AMA. NST reactive. Continue testing. OB Disposition: home
== END 2022-09-14 12:40 | disposition home or self-care (01) ==
LOC: LABOR 13:37 → OB 09-17 16:11
PROVIDERS: PCP Family Medicine; Referring Provider Family Medicine; Visit Provider Family Medicine
DX: O24.414 Gestational diabetes mellitus in pregnancy, insulin controlled (principal); O09.523 Supervision of elderly multigravida, third trimester; Z3A.37 37 weeks gestation of pregnancy
CPT/HCPCS: 59025; G0378; G0379

== ENCOUNTER 2022-09-17 10:51 | Outpatient (CLI) | payer OTHER, SELFPAY ==
--- NOTE | 2022-09-17 12:19 | PM.OBTRLD ---
Visit Information Visit Information Date of evaluation: 09/17/22 Primary OB Provider: Jennifer Rodriguez On-call OB Provider: Amanda Henley Reason for Evaluation: Yes non-stress test non-stress test reason: diabetes Vital Signs Vital Signs: Temperature 36.2? 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 occupational exposures/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: No special kathie needs: No seatbelt use: always helmet use: Yes water heater temp set < 120 deg: Yes working smoke detector in home: Yes fire extinguisher in home: Yes carbon monox detector in home: Yes firearms in home: No do you feel safe at home: Yes Smoking Status: Former smoker (Quit 2009) Tobacco: How many years used: 19 quit status: has quit before alcohol intake: former substance use type: does not use during the past year weight has: remained stable well-balanced diet: daily or most days daily servings fruits/ve-4 caffeine: Yes Type(s) of exercise: walking Evaluation Evaluation Baseline heart rate: 140 Variability: Moderate (11-25) monitor accelerations: Present Monitor Decelerations: Absent Category of Tracing: Reactive Diagnosis, Plan/Disposition Final Diagnosis (1) 38 weeks gestation of : Status: Acute (2) Gestational diabetes: Status: Acute (3) Advanced maternal age (AMA), 40 years or greater: Status: Acute Plan/Disposition Plan: 42 year old at 38w here for NST for GDMA2 and AMA.? NST reactive.? Continue testing per Dr. oRdriguez. OB Disposition: home
== END 2022-09-17 12:25 | disposition home or self-care (01) ==
LOC: LABOR 11:31 → OB 09-24 12:26
PROVIDERS: PCP Family Medicine; Referring Provider Family Medicine; Visit Provider Family Medicine
DX: O24.414 Gestational diabetes mellitus in pregnancy, insulin controlled (principal); O09.523 Supervision of elderly multigravida, third trimester; Z3A.38 38 weeks gestation of pregnancy
CPT/HCPCS: 59025; G0378; G0379

== ENCOUNTER 2022-09-21 11:32 | Outpatient (CLI) | payer OTHER, SELFPAY ==
--- NOTE | 2022-09-21 12:04 | P.TNLD_ITS ---
Visit Information Visit Information Date of evaluation: 09/21/22 Primary OB Provider: Jennifer Rodriguez Comments/Additional reasons for admission: 42yo at 38w4d here for NST for GDMA2 and AMA. Pt denies any vaginal bleeding, LOF, contractions. She is feeling her baby move regularly. [facility] Medical History Abnormal Pap smear of cervix (~2008) Gastritis Surgical History [place] teeth extracted Family History Father Prostate cancer Atrial fibrillation Family/Other Breast cancer Family/Other Prostate cancer Grandmother Bone cancer Family/Other Breast cancer Family/Other Cancer Social History marital status: number of children: 2 household members: spouse, family and children lives independently: Yes housing: [facility] (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: No special kathie needs: No seatbelt use: always helmet use: Yes water heater temp set < 120 deg: Yes working smoke detector in home: Yes fire extinguisher in home: Yes carbon monox detector in home: Yes firearms in home: No do you feel safe at home: Yes Smoking Status: Former smoker (Quit 2009) Tobacco: How many years used: 19 quit status: has quit before alcohol intake: former substance use type: does not use during the past year weight has: remained stable well-balanced diet: daily or most days daily servings fruits/ve-4 caffeine: Yes Type(s) of exercise: walking Evaluation Evaluation Baseline heart rate: 150 Variability: Moderate (11-25) monitor accelerations: Present Monitor Decelerations: Absent Category of Tracing: Reactive Diagnosis, Plan/Disposition Final Diagnosis (1) 38 weeks gestation of : Status: Acute (2) Gestational diabetes: Status: Acute (3) Advanced maternal age (AMA), 40 years or greater: Status: Acute Plan/Disposition Plan: 42yo at 38w4d here for NST for GDMA2 and AMA. NST reactive. Plan on IOL at 39wks. OB Disposition: home
== END 2022-09-21 13:00 | disposition home or self-care (01) ==
LOC: OB 09-24 12:32
PROVIDERS: PCP Family Medicine; Referring Provider Family Medicine; Visit Provider Family Medicine
DX: O24.414 Gestational diabetes mellitus in pregnancy, insulin controlled (principal); O09.523 Supervision of elderly multigravida, third trimester; Z3A.38 38 weeks gestation of pregnancy
CPT/HCPCS: 59025; G0378; G0379

== ENCOUNTER 2022-09-24 18:24 | Inpatient (IN) | payer OTHER, SELFPAY ==
[2022-09-24 20:33] LABS: Add Manual Diff / Slide Review NO; Basophils Absolute Auto 0 /uL (0-100); Basophils Percent Auto 0.3 % (0-2); Eosinophils Absolute Auto 100 /uL (0-450); Eosinophils Percent Auto 0.8 % (2-4); Hematocrit 36.6 % (36-46); Hemoglobin 11.9 g/dL (12.0-16.0); Lymphocytes Absolute Auto 1800 /uL (1100-4500); Lymphocytes Percent Auto 20.3 % (25-40); Mean Corpuscular HGB Conc 32.5 % (30-36); Mean Corpuscular Hemoglobin 26.1 PG (26-34); Mean Corpuscular Volume 80.4 fL (80-100); Monocytes Absolute Auto 600 /uL (0-900); Monocytes Percent Auto 6.9 % (3-14); Neutrophils Absolute Auto 6300 /uL (1500-7000); Neutrophils Percent Auto 71.7 % (50-75); Platelet Count 196 X10^3/uL (150-400); Red Blood Cell Count 4.55 X10^6/uL (4.0-5.2); Red Cell Distribution Width 14.3 % (11.6-14.8); White Blood Cell Count 8.8 X10^3/uL (4.5-11.0)
[2022-09-24 20:35] VITALS: BP 117/74
[2022-09-24 20:38] LABS: COVID19 -Nasal RAPID Negative (Negative)
[2022-09-24] MEDS: DINOPROSTONE VAG (CERVIDIL) 10 MG VAG (20:49)
[2022-09-25] MEDS: LACTATED RINGERS 1,000 ML 100 ML IV ×2 (08:11→17:22)
[2022-09-25] MEDS: OXYTOCIN PREMIX 30 UNIT/500 ML PLAST..BAG IV (09:16)
[2022-09-25 10:09] LABS: Add Manual Diff / Slide Review NO; Basophils Absolute Auto 0 /uL (0-100); Basophils Percent Auto 0.5 % (0-2); Eosinophils Absolute Auto 100 /uL (0-450); Eosinophils Percent Auto 0.8 % (2-4); Hematocrit 35.7 % (36-46); Hemoglobin 11.5 g/dL (12.0-16.0); Lymphocytes Absolute Auto 1800 /uL (1100-4500); Lymphocytes Percent Auto 19.5 % (25-40); Mean Corpuscular HGB Conc 32.3 % (30-36); Mean Corpuscular Volume 80.7 fL (80-100); Monocytes Absolute Auto 500 /uL (0-900); Monocytes Percent Auto 5.2 % (3-14); Neutrophils Absolute Auto 6800 /uL (1500-7000); Platelet Count 190 X10^3/uL (150-400); Red Blood Cell Count 4.43 X10^6/uL (4.0-5.2); Red Cell Distribution Width 14.6 % (11.6-14.8); White Blood Cell Count 9.2 X10^3/uL (4.5-11.0)
--- NOTE | 2022-09-25 10:40 | P.HPOB_ITS ---
OB HPI Date/Time Date of admission: 09/24/22 Date Patient Seen: 09/25/22 History of Present Condition Chief complaint: Induction RASTA Calculator Estimated Delivery Date Method Current WG Current Estimate 10/01/22 Ultrasound #1 39w 1d Other Estimates 10/24/22 LMP (Uncertain) 35w 6d Estimated Gestational Age (weeks): 39w1d : 3 Para: 2 Narrative: Pt is a 42yo at 39w1d here for IOL for GDMA2. Pt denies any vaginal bleeding or LOF. She has been feeling her baby move regularly. She is feeling light cramping this morning. Her has been complicated by GDMA2 with reasssuring testing and BS well controlled on insulin and Metformin. care: good care, initiated at week # (13) and pounds weight gain (6) Dating criteria OB: based on 1st trimester US only Ultrasounds: normal 1st trimester US and normal mid trimester US Obstetrical complications: gestational diabetes Medical complications OB: none Indications Indication for induction OB: gestational diabetes Preadmission Labs Last OB Lab Results: Blood Type O Positive 09/24/22 19:00 Antibody Screen Negative 09/24/22 19:00 Hematocrit 35.7 % (36-46) L 09/25/22 09:35 Hemoglobin 11.5 g/dL (12.0-16.0) L 09/25/22 09:35 Hepatitis B Surface Antigen Negative s/c (NEGATIVE) 06/23/22 10 :27 Hepatitis C Antibody Negative s/c (NEGATIVE) 06/23/22 10:27 Rubella Antibody 32.0 IU/mL (>15) 06/23/22 10:27 Varicella-Zoster IgG Antibody 475 index (Immune >165) 06/23/22 10:27 Glucose 1 Hour 212 mg/dL (76-139) H 06/25/22 10:11 Group B Streptococcus (PCR) Neg for grp b strep 09/07/22 09:33 -: Urine: negative External Labs -: Urine: negative Prior (ies) Past Pregnancies Del. Date GA/Weeks Labor Lgth Wt Sex Route Outcome Anesthesia Place Delv Breastfeed Preg Comp Name 10/12/01 38 9 5 lb 8 oz Male vaginal live - full term [place] 6 months Cas 05/04/07 37 4 4 lb 11 oz Female vaginal live - full term [place] 1 year intrauterine growth restr [place] Delivery Date: 05/04/07 Last Updated by: Marisa Pisano RN Very anemic and jaundiced, extended hospital stay after Evaluation Evaluation Baseline heart rate: 150 Variability: Moderate (11-25) monitor accelerations: Absent Monitor Decelerations: Absent Uterine Contraction Intensity: Mild Status: Category l Dilation (cm): 3 Effacement (%): 50 Dilation: 3-4 cm Effacement: 40-50% station: -3 Position of cervix: mid Consistency: soft Mandujano score: 6 PFSH Medical History Abnormal Pap smear of cervix (~2008) Gastritis Surgical History [place] teeth extracted Family History Father Prostate cancer Atrial fibrillation Family/Other Breast cancer Family/Other Prostate cancer Grandmother Bone cancer Family/Other Breast cancer Family/Other Cancer Social History marital status: number of children: 2 household members: spouse, family and children lives independently: Yes housing: [facility] ([facility]) pets and animals: Yes (3 dogs) education level: high school 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[employer]) current occupational exposures/hazards: No special kathie needs: No seatbelt use: always helmet use: Yes water heater temp set < 120 deg: Yes working smoke detector in home: Yes fire extinguisher in home: Yes carbon monox detector in home: Yes firearms in home: No do you feel safe at home: Yes Smoking Status: Former smoker Tobacco: How many years used: 19 quit status: has quit before alcohol intake: former substance use type: does not use during the past year weight has: remained stable well-balanced diet: daily or most days daily servings fruits/ve-4 caffeine: Yes Type(s) of exercise: walking Meds Home Medications and Allergies Home Medications Medication Instructions Recorded Confirmed Type ferrous sulfate 325 mg (65 mg 325 mg PO DAILY 03/23/22 09/24/22 History iron) tablet loratadine 10 mg tablet (Claritin) 10 mg PO DAILY PRN allergy symptoms 03/23/22 09/24/22 History prenat.vits,holger,dij-rklg-hasdf 1 tab PO DAILY 03/23/22 09/24/22 History blood sugar diagnostic (Advanced #200 ea 06/30/22 09/14/22 Rx Glucose Meter Test Strips) blood-glucose meter (Advanced #1 ea 06/30/22 09/14/22 Rx Glucose Meter) lancets (Accu-Chek Softclix #200 ea 06/30/22 09/14/22 Rx Lancets) metformin 500 mg tablet 500 mg PO BID #90 tabs 07/24/22 09/24/22 Rx alcohol pads #90 ea 08/12/22 09/14/22 Rx insulin NPH isoph U-100 human 100 10 unit (0.1 mL) SUBCUT QAM #10 mL 08/12/22 09/24/22 Rx unit/mL subcutaneous suspension (Novolin N NPH U-100 Insulin isophane) insulin needle/syringe #90 ea 08/12/22 09/14/22 Rx sharps container #1 ea 08/12/22 09/14/22 Rx Allergies Allergy/AdvReac Type Severity Reaction Status Date / Time No Known Drug Allergies Allergy Verified 09/21/22 11:02 OB Exam Narrative Exam Narrative: Gen: NAD, sitting comfortably in bed, appears well CV: RRR, no murmurs Resp: clear to auscultation bilaterally Abd: soft, nontender, gravid Ext: no edema Objective Labs Result Diagrams: 09/25/22 09:35 09/25/22 09:35 Labs: Laboratory Results - last 24 hr 09/24/22 09/24/22 09/24/22 19:00 19:00 19:00 WBC 8.8 RBC 4.55 Hgb 11.9 L Hct 36.6 MCV 80.4 MCH 26.1 MCHC 32.5 RDW 14.3 Plt Count 196 Neut % (Auto) 71.7 Lymph % (Auto) 20.3 L Pender % (Auto) 6.9 Eos % (Auto) 0.8 L Baso % (Auto) 0.3 Neut # (Auto) 6300 Lymph # (Auto) 1800 Pender # (Auto) 600 Eos # (Auto) 100 Baso # (Auto) 0 SARS-CoV-2 (PCR) Negative Blood Type O Positive Antibody Screen Negative 09/25/22 09:35 WBC 9.2 RBC 4.43 Hgb 11.5 L Hct 35.7 L MCV 80.7 MCH 26.0 MCHC 32.3 RDW 14.6 Plt Count 190 Neut % (Auto) 74.0 Lymph % (Auto) 19.5 L Pender % (Auto) 5.2 Eos % (Auto) 0.8 L Baso % (Auto) 0.5 Neut # (Auto) 6800 Lymph # (Auto) 1800 Pender # (Auto) 500 Eos # (Auto) 100 Baso # (Auto) 0 SARS-CoV-2 (PCR) Blood Type Antibody Screen Assessment and Plan Assessment and Plan Assessment and Plan narrative: Pt is a 42yo at 39w1d here for IOL for GDMA2. Pt currently controlled with metformin and insulin for her GDM, with excellent control. BS in the hospital thus far all in good range. GBS negative, Rh positive. Received cervidil overnight with good cervical change. - Expectant management. FHT intermittently with minimal to absent variability, followed by moderate variability. Occasionaly late decels. No reliable accelerations or decelerations. Will continue to monitor closely. Will cautiously initiate pitocin, and titrate as tolerated. Did discuss potential need for with the pt if FHT nonreassuring. - GBS negative, no prophylaxis indicated - Desires natural methods for pain control - Pt noted to have 3 elevated BPs since admission. Pre-eclampsia/HELLP labs ordered. Pt asymptomatic.
[2022-09-25 10:43] LABS: Alanine Aminotransferase 20 IU/L (<35); Albumin 3.2 g/dL (3.5-5.0); Albumin Globulin Ratio 0.9 (1.0-2.8); Alkaline Phosphatase 149 U/L (38-126); Aspartate Aminotransferase 32 IU/L (14-36); Bilirubin Total 0.6 mg/dL (0.2-1.3); Blood Urea Nitrogen 6 mg/dL (7-17); Calcium 8.8 mg/dL (8.4-10.2); Carbon Dioxide 23 mmol/L (22-32); Chloride 107 mmol/L (98-107); Estimated Glomerular Filt Rate > 60 mL/min (>60); Globulin 3.5 g/dL (1.7-4.1); Glucose 94 mg/dL (70-100); HEMOLYSIS < 15 (0-50); Potassium 3.4 mmol/L (3.4-5.1); Sodium 135 mmol/L (137-145); Total Protein 6.7 g/dL (6.3-8.2)
--- NOTE | 2022-09-25 13:30 | PM.OBPNLAB ---
Date/Time Date Patient Seen: 09/25/22 Pain Control Pain control: tolerating well Pelvic Exam Dilation (cm): 3 Effacement (%): 60 station: -2 Contractions Monitor mode: External Pitocin rate (mU/min): 5 Contraction frequency (min): 3 Contraction duration (min): 1 Contraction intensity: Mild Status status: Category l Heart Rate Baseline: 150 Monitor Accelerations: Present Monitor Decelerations: Absent Monitor Variability: Moderate Assessment and Plan Comments: Pt is a 42yo at 39w1d here for IOL for GDMA2.? Pt currently controlled with metformin and insulin for her GDM, with excellent control.? BS in the hospital thus far all in good range.? GBS negative, Rh positive.? Received cervidil overnight with good cervical change. Now on pitocin, starting to get more uncomfortable. FHT improved since starting pitocin. - Expectant management.? Anticipate . - FHT reassuring overall - Desires natural methods for pain control - No evidence of HELLP on labs, protein/creatinine still pending due to elevated BPs
--- NOTE | 2022-09-25 15:39 | PM.OBPNLAB ---
Date/Time Date Patient Seen: 09/25/22 Time Patient Seen: 15:39 Pain Control Pain control: tolerating well and other (nitrous) Pelvic Exam Dilation (cm): 4 Effacement (%): 70 station: -1 Amniotic membrane status: Ruptured Comments: After informed consent, AROM performed without production of significant amounts of fluid Contractions Monitor mode: External Contraction frequency (min): 2 Contraction intensity: Strong/Firm Status status: Category l Heart Rate Baseline: 150 Monitor Accelerations: Present Monitor Decelerations: Variable Monitor Variability: Moderate Assessment and Plan Comments: Pt is a 42yo at 39w1d here for IOL for GDMA2.? Pt currently controlled with metformin and insulin for her GDM, with excellent control.? BS in the hospital thus far all in good range.? GBS negative, Rh positive.? Received cervidil overnight with good cervical change.? Now on pitocin, continued gradual cervical change. AROM performed now. - Expectant management.? Anticipate . - FHT reassuring overall, infrequent variable decels - Using nitrous for pain control - No evidence of HELLP on labs, protein/creatinine still pending due to elevated BPs
[2022-09-25 15:58] LABS: Creatinine Urine Random 47.4 mg/dL; Protein (Total) Urine Random 107 mg/dL (0-12); Protein Creatinine Ratio Urine 2.25 GRAM/24H
--- NOTE | 2022-09-25 20:38 | PM.OBPRVD ---
Labor & Delivery Delivery date: 09/25/22 Intrapartal Events: Ineffective Pushing and Mild Preeclampsia Cervical ripening method: per Cervidil protocol Induction method: per pitocin protocol Delivery augmentation: rupture of membranes Delivery monitor: external FHT and external uterine Route of delivery: vacuum extraction Indication for instrumentation: maternal exhaustion L&D Laceration Description: None Quantitative Blood Loss: 100 Anesthesia Type: Epidural Complications: None Narrative: PROCEDURE: at 39w1d presented for IOL for GDMA2 and was admitted to Labor and Delivery. She received cervidil for induction, followed by pitocin. FHT were intermittently Category II due to minimal variability. AROm was performed with clear fluid present. The patient progressed through the 1st stage over 4 hours. Pain was controlled with an epidural. The patient progressed through the 2nd stage over 1 hours and delivered a viable female with APGARs 8/9 at 20:23 via vacuum-assisted vaginal delivery (see below). The baby passed meconium as delivering. Nuchal cord was reduced after delivery. The cord was cut and clamped after it stopped pulsating. The perineum and vagina were inspected with no lacerations. Indication for operative vaginal delivery was assessed to be secondary to maternal exhaustion. The pt was pushing with minimal force, however with good effort was able to bring baby down effectively. She reported little energy to push due to not eating all day. EFW from 09/07 was 25th percentile, so thought to be low risk for shoulder dystocia. Patient was evaluated and noted to have adequate pain control. Patient counseled on risks/benefits/alternatives of vacuum assisted delivery. Risks were discussed and they included but were not limited to a need for an episiotomy, pressure monteiro on the baby, lacerations to the baby's scalp/face, serious damage including skull fracture, the need to proceed with an abdominal procedure, , paralysis of the baby's arms and/or legs, neurological impairment of the baby. Alternatives would include CS or further observation depending on status. Questions were answered and the patient verbalized an understanding and decided to proceed. Cervix completely dilated and maternal bladder emptied. Maternal pelvis was noted to be adequate. heart tones: Category II with recurrent variable decels with good return to baseline and moderate variability Contractions q2-3minutes Vertex presentation in the transverse position and +1-2 station. Moulding absetn, Caput absent Vacuum cup of the Kiwi OmniCup applied to the flexion point without difficulty and during contractions, pressure applied between 400-600 mmHg as indicated in the green zone of the pressure gauge. Infant delivered after 1 pop-offs over an intact perineum. Total duration of application of the vacuum was 14 minutes. The anterior shoulder and remainder of the was delivered without difficulty. Infant was examined and noted to have a large cephalohematoma but no other injury noted. PREPROCEDURE DIAGNOSIS: Intrauterine at 39w1d GDMA2 Pre-eclampsia without severe features GBS negative RH positive POSTPROCEDURE DIAGNOSIS: Intrauterine at 39w1d, delivered Same as preprocedure Maternal exhaustion Vacuum-assisted vaginal delivery Baby 1: gender: Female Presentation: vertex Position: Left Occiput Anterior Placenta delivery description: Spontaneous Cord Vessel Description: 3 Vessels and Nuchal Cord score (1 min): 8 score (5 min): 9 weight: 6 lb 7 oz Plan for aftercare: Routine care
[2022-09-26] MEDS: IBUPROFEN 600 MG TABLET PO ×2 (03:38→09:54)
[2022-09-26 08:01] LABS: Alanine Aminotransferase 21 IU/L (<35); Albumin 2.8 g/dL (3.5-5.0); Albumin Globulin Ratio 0.9 (1.0-2.8); Alkaline Phosphatase 125 U/L (38-126); Aspartate Aminotransferase 32 IU/L (14-36); BUN Creatinine Ratio 11.3 (6-22); Bilirubin Total 0.7 mg/dL (0.2-1.3); Blood Urea Nitrogen 7 mg/dL (7-17); Calcium 8.6 mg/dL (8.4-10.2); Carbon Dioxide 23 mmol/L (22-32); Chloride 105 mmol/L (98-107); Estimated Glomerular Filt Rate > 60 mL/min (>60); Globulin 3.2 g/dL (1.7-4.1); Glucose 97 mg/dL (70-100); HEMOLYSIS < 15 (0-50); Potassium 3.5 mmol/L (3.4-5.1); Sodium 136 mmol/L (137-145)
[2022-09-26 08:09] LABS: Add Manual Diff / Slide Review NO; Basophils Absolute Auto 0 /uL (0-100); Basophils Percent Auto 0.3 % (0-2); Eosinophils Absolute Auto 0 /uL (0-450); Eosinophils Percent Auto 0.2 % (2-4); Hematocrit 33.7 % (36-46); Hemoglobin 10.9 g/dL (12.0-16.0); Lymphocytes Absolute Auto 1700 /uL (1100-4500); Lymphocytes Percent Auto 11.3 % (25-40); Mean Corpuscular HGB Conc 32.3 % (30-36); Mean Corpuscular Hemoglobin 25.9 PG (26-34); Mean Corpuscular Volume 80.2 fL (80-100); Monocytes Absolute Auto 1000 /uL (0-900); Monocytes Percent Auto 6.6 % (3-14); Neutrophils Absolute Auto 12300 /uL (1500-7000); Neutrophils Percent Auto 81.6 % (50-75); Platelet Count 147 X10^3/uL (150-400); Red Cell Distribution Width 14.3 % (11.6-14.8)
[2022-09-26 09:54] VITALS: TEMP 36.6
[2022-09-26] MEDS: DOCUSATE 100 MG CAPSULE PO (09:54)
[2022-09-26] MEDS: PRENATAL VIT,CALC/IRON/FOLIC 1 TABLET 1 TAB PO (09:54)
--- NOTE | 2022-09-26 11:04 | PM.OBDS.1 ---
Discharge Providers Provider Date of admission: 09/24/22 18:24 Discharge Date: 09/26/22 Primary care physician: Jennifer Rodriguez MD Consults: 09/26/22 20:37 Consult to [employer] Routine Comment: Discharge provider: Jennifer Rodriguez MD Summary Hospital Course Date Patient Seen: 09/26/22 Diagnoses: Intrauterine at 39w1d GDMA2 Pre-eclampsia without severe features GBS negative RH positive Maternal exhaustion Vacuum-assisted vaginal delivery Hospital Course: The pt presented for IOL due to GDMA2. She received cervidil followed by pitocin for induction. AROM was performed with production of clear fluid. She had an epidural for pain control. Her blood pressures were noted to be elevated during IOL, and protein/creatinine elevated. She was diagnosed with pre-eclampsia without severe features. She progressed to complete. The pt pushed ineffectively due to extreme fatigue. The decision was made to proceed with vacuum-assisted vaginal delivery. The pt had a successful vacuum-assisted vaginal delivery of a viable baby girl on 09/25/22 without complications. There were no lacerations. , there were no complications. Her blood pressures remained in good range. Her fasting glucose the next morning was in normal range. She was voiding, ambulating, and passing flatus without difficulty. Her lochia was decreasing appropriately. She was with good latch, and formula supplementing as well to help support blood sugars. Her pain was well controlled. She will f/u in 6 weeks for check. She is undecided regarding contraception. Peripartum Data Infant Delivery Method: Assisted Delivery (vacuum) Laceration Description: None Episiotomy description: None Procedures: vacuum-assisted vaginal delivery complications: none [place] 1: Gender: Female Disposition of : home Discharge Diagnosis (1) Vacuum-assisted vaginal delivery: Status: Acute (2) Gestational diabetes: Status: Acute (3) Pre-eclampsia: Status: Acute (4) Advanced maternal age (AMA), 40 years or greater: Status: Acute Status at Discharge Cognitive/behavioral status at discharge: oriented Functional status at discharge: independent ambulation Overall status at discharge: patient is progressing back to baseline Time Spent with Patient Time attestation: Total time spent providing and/or coordinating discharge services: Objective Labs Result Diagrams: 09/26/22 07:28 09/26/22 07:28 Labs: Laboratory Results - last 24 hr 09/25/22 09/26/22 09/26/22 14:00 07:28 07:28 WBC 15.0 H D RBC 4.20 Hgb 10.9 L Hct 33.7 L MCV 80.2 MCH 25.9 L MCHC 32.3 RDW 14.3 Plt Count 147 L Neut % (Auto) 81.6 H Lymph % (Auto) 11.3 L [place] % (Auto) 6.6 Eos % (Auto) 0.2 L Baso % (Auto) 0.3 Neut # (Auto) 20775 H Lymph # (Auto) 1700 [place] # (Auto) 1000 H Eos # (Auto) 0 Baso # (Auto) 0 Sodium 136 L Potassium 3.5 Chloride 105 Carbon Dioxide 23 BUN 7 Creatinine 0.62 Estimated GFR > 60 BUN/Creatinine Ratio 11.3 Glucose 97 Calcium 8.6 Total Bilirubin 0.7 AST 32 ALT 21 Alkaline Phosphatase 125 Total Protein 6.0 L Albumin 2.8 L Globulin 3.2 Albumin/Globulin Ratio 0.9 L U Random Total Protein 107 H Urine Creatinine 47.4 Protein/Creatinin Ratio 2.25 Exam Vital Signs (past 8 hours): - 09/26/22 09:54 Temperature 97.8 F Narrative Exam Narrative: Gen: NAD, sitting comfortably in bed, appears well CV: RRR, no murmurs Resp: clear to auscultation bilaterally Abd: soft, appropriately tender, fundus firm and below the umbilicus, nondistended Ext: no edema Discharge Plan Discharge Plan Patient Disposition: Home Discharge orders & Medications Prescriptions: New acetaminophen 325 mg Tablet 650 mg PO Q6HR PRN (Reason: Pain, Mild (1-3)) Qty: 30 0RF docusate sodium 100 mg Capsule 100 mg PO DAILY Qty: 30 0RF ibuprofen 600 mg Tablet 600 mg PO Q6HR PRN (Reason: Pain, Mild (1-3)) Qty: 30 0RF Continued prenat.vits,holger,dxm-awsh-jbfmb Tablet 1 tab PO DAILY loratadine [Claritin] 10 mg tablet 10 mg PO DAILY PRN (Reason: allergy symptoms) Discontinued metformin 500 mg tablet 500 mg PO BID Qty: 90 2RF Rx Instructions: Take 1 tab daily x 2 days, then 1 tab twice/day for 1 week, then 2 tabs twice/day (DME) blood-glucose meter [Advanced Glucose Meter] [facility] [place] [facility] See Rx Instructions .Route Qty: 1 1RF Rx Instructions: As directed (DME) Advanced Gluc Meter Test Strip Strip See Rx Instructions .Route Qty: 200 3RF Rx Instructions: test three times daily (DME) lancets [Accu-Chek Softclix Lancets] [facility] See Rx Instructions .Route Qty: 200 3RF Rx Instructions: test three times daily Novolin N NPH U-100 Insulin 100 unit/mL suspension 10 unit SUBCUT QAM Qty: 10 0RF (DME) insulin needle/syringe 1 ml See Rx Instructions .Route .MEDSUPPLY Qty: 90 0RF Rx Instructions: Insulin to be given once daily in AM (DME) sharps container See Rx Instructions .Route .MEDSUPPLY Qty: 1 3RF Rx Instructions: As directed (DME) alcohol pads See Rx Instructions .Route .MEDSUPPLY Qty: 90 0RF Rx Instructions: Use to clean fingertip before blood sample once daily ferrous sulfate 325 mg (65 mg iron) tablet 325 mg PO DAILY Follow up/Referrals: Jennifer Rodriguez MD [Primary Care Provider] - 6 Weeks Diet/Activity/Treatments Diet: Diet as Tolerated and Regular Skin/Wound/Dressing Care Report to your healthcare provider any signs of infection, such as:: chills, fever, increased pain and unusual drainage Visit Report/Discharge Packet Instructions: DI for Labor and Delivery, Vaginal Visit Report Forms: Patient Portal/API, Stroke Signs & Symptoms Discharge Data Primary Care Provider: Jennifer Rodriguez Attending Provider: Jennifer Rodriguez Admit Date/Time: 09/24/22 18:24
[2022-09-26 11:18] VITALS: BP 113/68; PULSE 85; RESP 17; TEMP 36.6
== END 2022-09-26 14:30 | disposition home or self-care (01) | DRG 807 ==
PROVIDERS: Admitting Provider Family Medicine; PCP Family Medicine; Referring Provider Family Medicine; Visit Provider Family Medicine
DX: O24.424 Gestational diabetes mellitus in childbirth, insulin controlled (principal); Z37.0 Single live birth; Z3A.39 39 weeks gestation of pregnancy; Z79.84 Long term (current) use of oral hypoglycemic drugs; O75.81 Maternal exhaustion complicating labor and delivery; O14.04 Mild to moderate pre-eclampsia, complicating childbirth; Z20.822 Contact with and (suspected) exposure to COVID-19
CPT/HCPCS: 36415; 59050; 59200; 59400; 80053; 82570; 84156; 85025; 86850; 86900; 86901; 87635; C9803; G0378; G0379; J2590

== ENCOUNTER → 2025-06-22 11:33 | Outpatient (CLI) | payer OTHER, SELFPAY ==
[2025-06-22 12:36] LABS: Add Manual Diff / Slide Review NO; Hematocrit 42.9 % (36-46); Hemoglobin 14.2 g/dL (12.0-16.0); Lymphocytes Absolute Auto 1900 /uL (1100-4500); Mean Corpuscular HGB Conc 33.0 % (30-36); Mean Corpuscular Hemoglobin 25.6 PG (26-34); Mean Corpuscular Volume 77.6 fL (80-100); Platelet Count 230 X10^3/uL (150-400)
[2025-06-22 12:53] LABS: Hemoglobin A1C% w Est Avg Glu 10.0 % (4.0-6.0)
[2025-06-22 13:31] LABS: Cholesterol 294 mg/dL (140-199); HDL Cholesterol 75 mg/dL (40-60); Triglycerides 231 mg/dL (35-150)
[2025-06-22 15:22] LABS: Alanine Aminotransferase 51 IU/L (<35); Albumin 4.8 g/dL (3.5-5.0); Albumin Globulin Ratio 1.5 (1.0-2.8); Alkaline Phosphatase 118 U/L (38-126); Blood Urea Nitrogen 7 mg/dL (7-17); Calcium 9.7 mg/dL (8.4-10.2); Carbon Dioxide 25 mmol/L (22-32); Chloride 101 mmol/L (98-107); Estimated Glomerular Filt Rate > 60 mL/min (>60); Globulin 3.3 g/dL (1.7-4.1); Glucose 225 mg/dL (70-99); HEMOLYSIS < 15 (0-50); Potassium 4.2 mmol/L (3.4-5.1); Sodium 138 mmol/L (137-145); Total Protein 8.1 g/dL (6.3-8.2)
== END ==
PROVIDERS: PCP Family Medicine; Referring Provider Family Medicine; Visit Provider Family Medicine
DX: Z13.220 Encounter for screening for lipoid disorders (principal); D64.9 Anemia, unspecified; Z86.32 Personal history of gestational diabetes
CPT/HCPCS: 36415; 80053; 80061; 83036; 85025

== ENCOUNTER → 2025-09-07 08:52 | Outpatient (CLI) | payer OTHER, SELFPAY ==
--- NOTE | 2025-09-07 09:02 | DIAB.MNT ---
Initial Diabetes Medical Nutrition Therapy Assessment Name: Hailey Harrison Date: 09/07/25 Time: 9-10a Dx: Type II Diabetes Provider: Preferred Learning Style: Hailey presents for initial Dm visit. Last RD visit for GDM in 2021. Increased Metformin to full dose per PCP recs. Endorses liquid BM once per day since increasing Metformin, no urgency though. Eating with Metformin. Reading labels for sugar vs total CHO Wants to know which foods impact BG most. Using oat milk over regular milk, not sure what i can eat Made diet changes. Using brown rice instead of white rice. Whole household making changes with her. Interested in CGM sample. Works at [employer] Diet Recall: 9am toast with egg or just egg or dry oat x 1c 1130-12p: 1c brown rice with meat and veggies 2-3p: veggies, 4 crackers with cheese 7p: no rice, eats veggies and meat 8p: 1/2c fruit or a glucerna shake water coffee, oatmilk, sf vanilla x 20oz in morning Anthropometrics: Ht: 5' Wt: 130# Weight history: Physical Activity: No program. Active at work with walking for job. Weather dependent walking on beach. Self-Monitoring Blood Glucose: Checking TID: FBG and pre meal. FBG consistently elevated, though has improved since Oct readings in the 200s. Pre meal numbers later in the day usually lower. Date Pre Post Pre Post Pre Post HS 09/01 175 126 09/02 169 123 12/1 187 12/2 175 213 131 12/3 188 166 12/4 146 129 132 12/5 180 Diabetes Medications: 1000mg Metformin BID Pertinent Labs: HgA1c: 9.2% 07/2025 Past Medical History: (Last Updated 06/25/25 @ 13:25 by Jennifer Rodriguez MD) Abnormal Pap smear of cervix (~2008) f/u colposcopy w/ biopsy, negative; all paps negative since then Gastritis manages w/ diet Pre-eclampsia Spontaneous vaginal delivery X3, third required vacuum assistance Vacuum-assisted vaginal delivery Nutrition Rx: Carbohydrates: Meal:30g Snack:15-30g Nutrition Diagnosis: - Nutrition and food related knowledge deficit r/t needing more info on CHO portion aeb pt report Intervention: This participant was very receptive. Provided appropriate educational handouts. Discussed the following topics: Completed intake assessment. Discussed barriers to care. Pathophysiology of T2DM self-monitoring, SMBG vs CGM, precautions and benefits of CGm sample, CGM placement Plate Method, impact of macronutrients on blood sugar, meal timing, carbohydrate counting, pairing macronutrients and spreading out carbohydrates for better blood glucose management Recommended servings for carbohydrates at meals and snacks Heart health nutrition Brainstormed appropriate meal/snack ideas based on food preferences Potential for Metformin XR given GI upset Created SMART goals for patient self-care and success. Goals: read food labels for net CHo Try half the oats Add pro to oats Wear CGM Follow-up: [facility] follow-up in 2-3 weeks Sushma Mosqueda RDN, RHODAES Certified Diabetes Care and Te[employer]el [employer] Operator P: [phone] Thank you for this referral
== END ==
LOC: DIET 08:52
PROVIDERS: PCP Family Medicine; Referring Provider Family Medicine
DX: E11.9 Type 2 diabetes mellitus without complications (principal); Z71.3 Dietary counseling and surveillance; Z79.84 Long term (current) use of oral hypoglycemic drugs
CPT/HCPCS: 97802

== ENCOUNTER → 2025-09-19 12:52 | Outpatient (CLI) | payer OTHER, SELFPAY ==
--- NOTE | 2025-09-19 12:56 | DIAB.MNTFU ---
Follow-up Diabetes Medical Nutrition Therapy Assessment Name: Hailey Harrison Date: 09/19/25 Time: 1-140p Dx: Type II Diabetes Hailey presents for follow-up Dm visit. Reduced diarrhea recently with taking Metformin with small snack vs larger meal per report. Started reading food labels for net carbs now. Choosing lower CHO bread. Cut out oats recently. States CGM sample did make her feel some anxiety with elevations. Often over 180mg/dl after eating per reports, despite reduced CHO intake. Often 15-30g CHO at meals. Tried reduced CHO almond milk in sf coffee and enjoyed it. Had eye exam this year, though denies dilated exam. Did not tell them she had T2. scrubs feet daily, no concerns today. States she worries about needing insulin. We did discuss T2 vs GDM med rec for BG. Sees PCP today Diet Recall: 9am toast with egg 1130-12p: <1c brown rice with meat and veggies 2-3p: veggies, 4 small crackers with cheese and 1 mandarin orange 7p: no rice, eats veggies and meat, or <1c rice 8p: 1/2c fruit or a glucerna shake water coffee, almond milk, sf vanilla x 20oz in morning Anthropometrics: Ht: 5' Wt: 130# Weight history: Physical Activity: No program. Active at work with walking for job. [place]. Sister has offered to go to gym with her 2-3 x per week, but schedule is a challenge with working 10 hours. Has a treadmill. Dances with daughter some days. Walks at 15min work breaks. Self-Monitoring Blood Glucose: Wore CGM sample. some excessive tiem 180-250mg/dl with postprandial elevations. TIR: 3% very high 29% high 68% in range 0% low 168mg/dl average GMI: 7.3% Std dev: 37mg/dl variation: 22.1% Last visit: Date Pre Post Pre Post Pre Post HS 09/01 175 126 09/02 169 123 09/03 187 12 175 213 131 12 188 166 09/06 146 129 132 12/ 180 Diabetes Medications: 1000mg Metformin BID Pertinent Labs: HgA1c: 9.2% 07/2025 Past Medical History: (Last Updated 06/25/25 @ 13:25 by Jennifer Rodriguez MD) Abnormal Pap smear of cervix (~2008) f/u colposcopy w/ biopsy, negative; all paps negative since then Gastritis manages w/ diet Pre-eclampsia Spontaneous vaginal delivery X3, third required vacuum assistance Vacuum-assisted vaginal delivery Nutrition Rx: Carbohydrates: Meal:30gSnack:15-30g Nutrition Diagnosis: - Nutrition and food related knowledge deficit r/t needing more info on CHO portion aeb pt report - improved and in progress Intervention: This participant was very receptive. Provided appropriate educational handouts. Discussed the following topics: Physical activity options Recommended servings for carbohydrates at meals and snacks Low CHO diet vs very low CHO diet pro/cons Reviewed medications for T2DM, if needed in the future, specifically those besides insulin Reducing DM complications: eyes, feet Created SMART goals for patient self-care and success. Goals: read food labels for net CHo- met Try half the oats - in progress Add pro to oats- in progress Wear CGM- met Consider adding more activity- new Move after meals (walk/dance/treadmill)- new Follow-up: [facility] follow-up in 2-3 weeks Sushma Mosqueda RDN, JESSIE Certified Diabetes Care and [employer] [place] Worker P: [phone] Thank you for this referral
== END ==
LOC: DIET 12:53
PROVIDERS: PCP Family Medicine; Referring Provider Family Medicine
DX: E11.9 Type 2 diabetes mellitus without complications (principal); Z79.84 Long term (current) use of oral hypoglycemic drugs; Z71.3 Dietary counseling and surveillance
CPT/HCPCS: 97803